=== PATIENT | male | born 1975 | race Caucasian/White ===

== ENCOUNTER 2020-03-09 17:02 | Emergency (ER) | payer SELFPAY ==
[2020-03-09 17:08] VITALS: BP 147/85
[2020-03-09] MEDS ORDERED: CEPHALEXIN 500 MG CAPSULE PO ONE (17:37)
--- NOTE | 2020-03-09 17:42 | ER Document Report ---
HPI - HPI Time Seen by Provider: 03/09/20 17:36 Notes: CHIEF COMPLAINT: Infected wound right forearm HPI: 44-year-old male presenting to the emergency department with concerns about an infection of a wound on the right forearm. Patient states that he was under the influence and was scratching at the skin and now has developed an open wound on the right forearm that is draining. States it is been ongoing for approximately a week. ROS: See HPI - all other systems were reviewed and are otherwise negative Constitutional: no fever Integumentary: + rash Allergy: no hives Musculoskeletal: + extremity pain or swelling Neurological: no numbness/tingling, no weakness MEDICATIONS: I agree with the patient medications as charted by the RN. ALLERGIES: I agree with the allergies as charted by the RN. PAST MEDICAL HISTORY/PAST SURGICAL HISTORY: Reviewed and agree as charted by RN. SOCIAL HISTORY: Reviewed and agree as charted by RN. FAMILY HISTORY: No significant familial comorbid conditions directly related to patient complaint EXAM: Reviewed vital signs as charted by RN. CONSTITUTIONAL: Alert and oriented and responds appropriately to questions. Well-appearing; well-nourished HEAD: Normocephalic; atraumatic EYES: Conjunctivae clear, sclerae non-icteric ENT: normal nose; no rhinorrhea; moist mucous membranes NECK: Supple without meningismus CARD: symmetric distal pulses RESP: Normal chest excursion without splinting or tachypnea ABD/GI: non-distended. BACK: The back appears normal EXT: Normal ROM in all joints; no cyanosis, no effusions, no edema SKIN: Normal color for age and race; warm; dry; good turgor; there is an open linear wound on the right dorsal forearm measuring approximately 6 cm in diameter with some scabbing, some erythema surrounding this with some serous discharge. Appears relatively superficial with no visible foreign bodies NEURO: Moves all extremities equally; Motor and sensory function intact PSYCH: The patient's mood and manner are appropriate. Grooming and personal hygiene are appropriate. MDM: 44-year-old male with a superficial wound that appears slightly infected on the right forearm will place on Keflex. Has had other wounds like this previously. Patient states he is up-to-date on tetanus vaccination. Past Medical History - Social History Smoking Status: Unknown if Ever Smoked Family History: Reviewed & Not Pertinent Course - Vital Signs Vital signs: Temp Pulse Resp BP Pulse Ox 97.9 F 62 18 147/85 H 99 03/09/20 17:07 03/09/20 17:07 03/09/20 17:07 03/09/20 17:07 03/09/20 17:07 Discharge - Discharge Clinical Impression: Post-traumatic wound infection Condition: Stable Disposition: HOME, SELF-CARE Instructions: Cellulitis ([facility]) Additional Instructions: Avoid scratching at the skin, clean the wound on the forearm with soap and water twice daily apply small amount of antibiotic ointment until healed. Take the oral antibiotics as prescribed. Return for worsening redness or onset of fever Prescriptions: Cephalexin Monohydrate [Keflex 500 mg Capsule] 500 mg PO Q6H 7 Days #28 capsule Referrals: CELESTE SOLANO MD [ACTIVE STAFF] - Follow up as needed
== END 2020-03-09 17:45 | disposition home or self-care (01) ==
LOC: ER 17:02
DX: B99.9 Unspecified infectious disease (principal); S50.911A Unspecified superficial injury of right forearm, initial encounter; X58.XXXA Exposure to other specified factors, initial encounter
CPT/HCPCS: 99282